=== PATIENT | male | born 1940 | race Caucasian/White ===

== ENCOUNTER 2020-08-15 14:16 | Emergency (ER) | payer OTHER, MEDICARE ==
[~2020-08-15] VITALS: Ht 167.6 cm; Wt 72.4 kg
[2020-08-15 14:22] VITALS: BP 132/82
--- NOTE | 2020-08-15 14:39 | EKG ---
[address] [address] Test Date: 2020-08-15 Test Time: 14:33:56 Pat Name: ILDEFONSO ARREOLA Department: Room: Gender: M Municipal Clerk: NUSRAT : 1940 Requested By: REMI CONTRERAS Order Number: [id number] Reading MD: Cesar Zamarripa Measurements Intervals [place] Rate: 77 P: -20 ND: 120 QRS: 32 QRSD: 78 T: 35 QT: 394 QTc: 448 Interpretive Statements SINUS RHYTHM ATRIAL PREMATURE COMPLEX(ES) Electronically Signed On 08-22-2020 10:15:00 CODING COMPLIANCE SPECIALIST by Cesar Zamarripa
[2020-08-15 14:54] LABS: BASO # 0.1 x10^3/uL (0.0-0.2); BASO % 1 % (0-3); EOS # 0.1 x10^3/uL (0.0-0.7); EOS % 1 % (0-3); HEMATOCRIT 23.1 % (39.0-53.0); HEMOGLOBIN 7.8 g/dL (13.0-17.5); LYMPH # 4.3 x10^3/uL (1.0-4.8); LYMPH % 46 % (24-48); MEAN CORPUSCULAR HEMOGLOBIN 38 pg (25-35); MEAN CORPUSCULAR HGB CONC 34 g/dL (31-37); MEAN CORPUSCULAR VOLUME 112 fL (79-100); MONO # 0.9 x10^3/uL (0.0-1.1); MONO % 10 % (0-9); NEUT # 3.9 x10^3uL (1.8-7.7); NEUT % 42 % (31-73); PLATELET COUNT 170 x10^3/uL (140-400); RED BLOOD COUNT 2.07 x10^6/uL (4.30-5.70); RED CELL DISTRIBUTION WIDTH 19.8 % (11.5-14.5); WHITE BLOOD COUNT 9.3 x10^3/uL (4.0-11.0)
--- NOTE | 2020-08-15 15:07 | RAD ---
PQRS Compliance Statement: One or more of the following individualized dose reduction techniques were utilized for this examinat ion: 1. Automated exposure control 2. Adjustment of the mA and/or kV according to patient size 3. Use of iterative reconstruction technique CT HEAD WITHOUT CONTRAST History: Reason: ALTERED MENTAL STATUS / Spl. Instructions: / History: Comparison: None. Technique: Axial images are obtained of the head from the skull base through the vertex without IV co ntrast. Findings: No mass-effect, midline shift, extra-axial fluid collection, hemorrhage, or obvious acute infarction is identified. Basilar cisterns are patent. The ventricles and sulci are prominent, consistent with age-related cerebral atrophy. There is modera te periventricular white matter hypoattenuation. This is a nonspecific finding but is commonly due t o chronic small vessel ischemic disease. Bone windows demonstrate no acute calvarial abnormality. The visualized paranasal sinuses are clear. Mastoid air cells are well aerated. IMPRESSION: 1. No acute intracranial abnormality. 2. Age-related cerebral atrophy and moderate periventricular white matter changes probably due to ch ronic small vessel ischemic disease. Electronically signed by: Jordi Dasilva MD (08/15/2020 3:04 PM) [id number]
[2020-08-15 15:09] LABS: CREATININE 3.2 mg/dL (0.7-1.3); GFR 18.9; POTASSIUM 4.5 mmol/L (3.5-5.1)
--- NOTE | 2020-08-15 15:14 | PHYS DOC ---
Past History Past Medical History: Liver Disease Past Surgical History: No Surgical History Smoking: Non-smoker Alcohol Use: None Drug Use: None General Adult EDM: Chief Complaint: ALTERED MENTAL STATUS HPI: HPI: 80-year-old male presenting the emergency department today with worsening tremors bilaterally. He has a history of "liver disease. EMS arrives with the patient. It is not clear what kind of liver disease he has. He also has had worsening confusion over the past 2 days. No reports of focal neurologic deficit. Patient has not had any vomiting. Onset 2 days ago. Duration intermittent. Associated with tremors bilaterally. Review of systems is negative for headache vomiting fevers chills. Negative for abdominal pain. All other review of systems negative. ED course: 80-year-old male presenting with worsening tremors of the upper extremity with history of liver disease and worsening confusion. On arrival it was difficult to get information about the patient because the patient came alone EMS report was not very substantial and we did not have a phone number for the patient's family member. Blood work ordered along with a head CT. Head CT unremarkable. EKG obtained which shows sinus rhythm with a regular rate. [address] segments congruent. Not suggestive of acute ischemia. On arri marcella the patient is afebrile with a normal heart rate. Blood pressure within normal limits. Satting well on room air. On physical examination the patient does not have a focal neurologic deficit but rather general tremors in the arms bilaterally. Blood work shows a hemoglobin of 7.8. Chemistry panel shows elevated BUN and creatinine. No previous for comparison. Creatinine 3.2. GFR of 18. Lactic acid is 2.2. Total bilirubin 3.6. proBNP elevated at 1241. Ammonia elevated at 54. Lipase elevated at 513. The patient was given IV antibiotics to cover for underlying occult infection. Head CT obtained and unremarkable. Chest x-ray shows shows perihilar interstitial airspace disease which may represent interstitial pneumonitis versus interstitial edema. Given the patient's other presentation it is more likely to represent interstitial edema. CT abdomen pelvis shows cirrhosis of the liver which is nonspecific. There is a large amount of ascites. Cholecystectomy with a small amount of pneumobilia. Bilateral pleural effusions present. We initially tried to transfer the patient to [facility] per the family's request. Initially they said they did not have any beds however after the family was able to contact their GI doctor Dr. Pearson he was able to arrange for the patient to get a [facility] bed. We had called [facility] because [facility] had declined transfer initially. We initiated transfer there but were still awaiting final bed placement at [facility] because the family's preference is that [facility] which is where his GI doctor is. Patient was then signed out to oncoming physician at 6 PM with plans to follow- up on establishing bed placement at [facility]. Physical Exam: PE: Constitutional: Well developed, well nourished, no acute distress, non-toxic a ppearance. [] HENT: Normocephalic, atraumatic, bilateral external ears normal, oropharynx moist, no oral exudates, nose normal. [] Eyes: PERRLA, EOMI, conjunctiva normal, no discharge. [] Neck: Normal range of motion, no tenderness, supple, no stridor. [] Cardiovascular:Heart rate regular rhythm, no murmur [] Lungs & Thorax: Bilateral breath sounds clear to auscultation [] Abdomen: Bowel sounds normal, soft, no tenderness, no masses, no pulsatile masses. [] Skin: Warm, dry, no erythema, no rash. [] Back: No tenderness, no CVA tenderness. [] Extremities: No tenderness, no cyanosis, no clubbing, ROM intact, no edema. [] Neurologic: Mental status: Awake oriented and alert x3 Cranial nerves: Extraocular movements intact, eyebrows javier bilaterally, smile symmetric, uvula elevation nl, shoulder shrug intact bilaterally, tongue protrusion normal Clear speech. Normal [id number]. Sensation: equal and normal in all extremities Strength: 5/5 in upper and lower extremities bilaterally. Intention tremors of the upper extremities bilaterally. Psychologic: Affect normal, judgement normal, mood normal. [] Current Patient Data: Labs: Laboratory Tests Test 08/15/20 14:34 White Blood Count 9.3 x10^3/uL (4.0-11.0) Red Blood Count 2.07 x10^6/uL (4.30-5.70) L Hemoglobin 7.8 g/dL (13.0-17.5) L Hematocrit 23.1 % (39.0-53.0) L Mean Corpuscular Volume 112 fL (79-100) H Mean Corpuscular Hemoglobin 38 pg (25-35) H Mean Corpuscular Hemoglobin Concent 34 g/dL (31-37) Red Cell Distribution Width 19.8 % (11.5-14.5) H Platelet Count 170 x10^3/uL (140-400) Neutrophils (%) (Auto) 42 % (31-73) Lymphocytes (%) (Auto) 46 % (24-48) Monocytes (%) (Auto) 10 % (0-9) H Eosinophils (%) (Auto) 1 % (0-3) Basophils (%) (Auto) 1 % (0-3) Neutrophils # (Auto) 3.9 x10^3uL (1.8-7.7) Lymphocytes # (Auto) 4.3 x10^3/uL (1.0-4.8) Monocytes # (Auto) 0.9 x10^3/uL (0.0-1.1) Eosinophils # (Auto) 0.1 x10^3/uL (0.0-0.7) Basophils # (Auto) 0.1 x10^3/uL (0.0-0.2) Vital Signs: Vital Signs Date Time Temp Pulse Resp B/P (MAP) Pulse Ox O2 Delivery O2 Flow Rate FiO2 08/15/20 14:22 98.3 78 18 132/82 (99) 96 EKG: EKG: [] Radiology/Procedures: Radiology/Procedures: [] Heart Score: Risk Factors: Risk Factors: DM, Current or recent (<one month) smoker, HTN, HLP, family history of CAD, obesity. Risk Scores: Score 0 - 3: 2.5% MACE over next 6 weeks - Discharge Home Score 4 - 6: 20.3% MACE over next 6 weeks - Admit for Clinical Observation Score 7 - 10: 72.7% MACE over next 6 weeks - Early Invasive Strategies Course & Med Decision Making: Course & Med Decision Making Pertinent Labs and Imaging studies reviewed. (See chart for details) [] Dragon Disclaimer: Dragon Disclaimer: This electronic medical record was generated, in whole or in part, using a voice recognition dictation system. Departure Departure: Impression: Primary Impression: Altered mental status Additional Impressions: Lactic acid increased Elevated brain natriuretic peptide (BNP) level Hepatic encephalopathy Disposition: DC/TRF OTHER TYPE INSTITUTI Condition: STABLE Referrals: PCP,UNKNOWN (PCP) REMI CONTRERAS MD Aug 15, 2020 15:14
[2020-08-15 15:23] LABS: ALBUMIN 1.4 g/dL (3.4-5.0); TOTAL BILIRUBIN 3.6 mg/dL (0.2-1.0)
--- NOTE | 2020-08-15 15:49 | RAD ---
XR CHEST 1V 08/15/2020 3:42 PM INDICATION: Elevated bilirubin COMPARISON: None available TECHNIQUE: Portable frontal view of the chest is provided. FINDINGS: The cardiomediastinal silhouette is within normal limits. Perihilar interstitial airspace disease not ed. Trace of pleural effusion with adjacent compressive atelectasis. No pulmonary vascular congestion or pneumothorax. No suspicious osseous abnormality. IMPRESSION: Perihilar interstitial airspace disease may represent interstitial pneumonitis versus interstitial ed jenn. Electronically signed by: Lavonne Lowery MD (08/15/2020 3:46 PM) [id number]
--- NOTE | 2020-08-15 15:56 | RAD ---
Exam: CT of abdomen and pelvis without contrast INDICATION: Elevated bilirubin TECHNIQUE: Sequential axial images through the abdomen and pelvis obtained without IV contrast. Sagit alma delia and coronal reformatted images were reconstructed from the axial data and reviewed. Comparisons: None FINDINGS: Heart size is normal. No pericardial there is a small to moderate left-sided pleural effusion and tra ce right pleural effusion with adjacent atelectasis. Valuations solid organs limited secondary to noncontrast technique. Liver demonstrates a nodular contour. There is heterogenous attenuation of the liver parenchyma. Ther e is a small to moderate amount of central pneumobilia. Spleen, pancreas, and adrenals are unremarkable. Gallbladder is absent. No perinephric inflammation or hydronephrosis. There are several incompletely characterized hypoatten uating cystic lesions at the kidneys bilaterally. No renal or ureteral calculi are identified. Bladder is distended and appears thin-walled. Prostate is not enlarged. Large and small bowel are unremarkable. Appendix is not identified. There is a large amount of free f luid in the abdomen. No free intra-abdominal air. Abdominal aorta has a normal course and caliber. No enlarged intra-abdominal lymph nodes are identified. No suspicious osseous lesions or acute fractures. IMPRESSION: 1. Cirrhotic morphology of liver with heterogenous echotexture which is nonspecific and not well paty luated on noncontrast exam. Correlate with LFTs to determine the need for further evaluation with [facility] protocol CT or MRI. 2. Large amount of intra-abdominal ascites. 3. Cholecystectomy with a small amount of pneumobilia. 4. Small to moderate left and trace right pleural effusion. Exposure: One or more of the following in the visualized dose reduction techniques were utilized for this examination: 1. Automated exposure control 2. Adjustment of the MA and/or KV according to patient size 3. Use of iterative of reconstructive technique Electronically signed by: Yi Vásquez MD (08/15/2020 3:53 PM) [facility]
[2020-08-15 18:15] LABS: CLARITY,URINE CLOUDY; COLOR,URINE RED
[2020-08-15 18:16] LABS: BACTERIA,URINE 0 /HPF (0-FEW); RBC,URINE TNTC /HPF (0-2); WBC,URINE 0 /HPF (0-4)
[2020-08-15] MEDS ORDERED: IV NORMAL SALINE 50ML 50 ML ONE (18:28)
[2020-08-15] MEDS ORDERED: cefTRIAXone SODIUM 1 GM VIAL ONE (18:28)
[2020-08-15 21:28] LABS: ANISOCYTOSIS SLIGHT; PLT ESTIMATE DECREASED (ADEQUATE)
== END 2020-08-15 21:44 | disposition short-term general hospital (02) ==
LOC: ER 14:16
DX: K72.90 Hepatic failure, unspecified without coma (principal); R41.82 Altered mental status, unspecified; R79.89 Other specified abnormal findings of blood chemistry; R74.02 Elevation of levels of lactic acid dehydrogenase [LDH]
CPT/HCPCS: 36415; 70450; 71045; 74176; 80048; 80076; 81001; 82140; 83605; 83690; 83880; 84484; 85025; 93005; 96365; 99285; J0696